=== PATIENT | female | born 1950 | race Caucasian/White ===

== ENCOUNTER 2017-01-02 06:50 | Day surgery (SDC) | payer MEDICARE, BC ==
[~2017-01-02 06:50] MED LIST: Midazolam 1 MG/ML 2 ML SDV ONE; fentaNYL 100 MCG/2 ML SDV ONE
[2017-01-02] MEDS ORDERED: Dextrose 5%-0.45% NaCl 1,000 ML IV SCH (07:00)
[2017-01-02] MEDS ORDERED: Sodium Chloride 0.9% 10 ML Syringe FLUSH PRN (07:00)
[2017-01-02] MEDS ORDERED: fentaNYL 100 MCG/2 ML SDV IV ONE ×2 (07:46→07:47)
[2017-01-02] MEDS ORDERED: Midazolam 1 MG/ML 2 ML SDV IV ONE ×3 (07:47→07:48)
--- NOTE | 2017-01-02 08:33 | OR ---
DATE: 01/02/2017 PROCEDURE: Esophagogastroduodenoscopy and multiple pinch biopsies. INSTRUMENT USED: GIF-H180 Olympus video panendoscope. PREMEDICATIONS: No oral topical anesthesia used. Fentanyl 100 mcg intravenous, Versed 2 mg intravenous. 2 L O2 nasal cannula. The procedure was done under pulse oximetry, BP recording, and media monitor. INDICATION: The patient with unexplained iron-deficiency anemia, on long-term aspirin. Esophagogastroduodenoscopy is performed for detection of any active erosive lesions, malignancy also under consideration, H. pylori status to be determined, small bowel biopsies to be obtained for celiac disease if indicated, endoscopic hemostasis therapy if needed. DESCRIPTION OF PROCEDURE: The scope was passed with ease. Adequate visualization of the esophagus was made from proximal to distal areas. No upper esophageal lesions identified. No distal esophageal stricture. No uphill or downhill esophageal varices. No Pallavi Thorne tear. No esophageal polyp or tumor mass identified. Z-line was seen at around 39 cm distal to the oral verge, configuration consistent with grade 1 by ZAP classification. No proximal gastric varices noted. Gastric fundus examination showed erosions without bleeding from it. No gastric ulcer, malignant mass, or vascular ectasia identified. Gastric antral erosion was noted in the pre-pyloric area. Duodenal bulb showed no ulcer. Visualized second part of the duodenum was unremarkable. Multiple pinch biopsies, 4 in number, were taken from different areas of the second part of the duodenum, biopsies were also taken from the duodenal bulb at 9 and 12 o'clock positions and sent for any histopathologic evidence of celiac disease. Multiple pinch biopsies were also taken from the gastric antrum and proximal body and sent for PyloriTek test for H. pylori and histopathology. No bleeding was noted from any of the visualized areas at the completion of examination. Photographs were taken of the duodenal bulb, gastric antrum, fundus, and distal esophagus. IMPRESSION: Gastric erosions. The patient tolerated the procedure well. [facility] /[id number]
[2017-02-13 13:45] VITALS: BP 158/56
== END 2017-01-02 10:05 | disposition home or self-care (01) ==
LOC: DL.ENDO 06:50
PROVIDERS: ATTEND Internal Medicine Gastroenterology
DX: K29.50 Unspecified chronic gastritis without bleeding (principal); I10 Essential (primary) hypertension; E66.9 Obesity, unspecified; M85.80 Other specified disorders of bone density and structure, unspecified site; E78.5 Hyperlipidemia, unspecified; D50.9 Iron deficiency anemia, unspecified; Z90.49 Acquired absence of other specified parts of digestive tract; Z98.890 Other specified postprocedural states; Z88.5 Allergy status to narcotic agent; Z88.0 Allergy status to penicillin; Z79.52 Long term (current) use of systemic steroids; Z79.899 Other long term (current) drug therapy
CPT/HCPCS: 43239; 87077; J2250; J3010; J7042; 88305

== ENCOUNTER 2017-01-03 05:47 | Day surgery (SDC) | payer MEDICARE, BC ==
[2017-01-03] MEDS ORDERED: Dextrose 5%-0.45% NaCl 1,000 ML IV SCH (06:15)
[2017-01-03] MEDS ORDERED: fentaNYL 100 MCG/2 ML SDV ONE (06:16)
[2017-01-03] MEDS ORDERED: Midazolam 1 MG/ML 2 ML SDV ONE (06:16)
[2017-01-03] MEDS ORDERED: fentaNYL 100 MCG/2 ML SDV IV ONE ×3 (06:30→16:41)
[2017-01-03] MEDS ORDERED: Midazolam 1 MG/ML 2 ML SDV IV ONE ×7 (06:32→16:41)
--- NOTE | 2017-01-03 07:56 | OR ---
DATE: 01/03/2017 PROCEDURE: Total colonoscopy. INSTRUMENT USED: CF-H180AL Olympus video colonoscope. PREMEDICATIONS: Fentanyl 100 mcg intravenous, Versed 4 mg intravenous. Nasal 2 L O2 cannula. The procedure was done under pulse oximetry, BP recording, and school lunch monitor. INDICATION: The patient with iron-deficiency anemia. Colonoscopic examination is done for detection of any polypoid lesions and removal, endoscopic hemostasis therapy if needed. DESCRIPTION OF PROCEDURE: Initial rectal exam showed external hemorrhoidal tags. Rigid anoscopy was unremarkable. The colonoscope was passed with ease. Numerous scattered diverticula were noted in the distal left colon along with significant deformity. The scope was passed with ease up to the ileocecal area, photographs were taken of the normal-appearing cecum, identified by landmarks of appendiceal orifice and double-bulged ileocecal folds. No bleeding was noted from any of the visualized areas at the commencement of the examination. No stricture. No vascular ectasia. No large isolated ulcerations seen. No evidence of diffuse inflammatory bowel disease in the form of friability, contact bleeding, or ulcerations. No polyp or tumor mass identified. Probing the proximal sides of folds and flexures, using adequate distention and clearing up the stool material, withdrawal of the scope was made, cecum to rectum time over 6 minutes. No bleeding was noted from any of the visualized areas at the completion of examination. IMPRESSION: 1. External hemorrhoids. 2. Diverticulosis. The patient tolerated the procedure well. [facility] /[id number]
[2017-02-13 13:46] VITALS: BP 149/73
== END 2017-01-03 09:05 | disposition home or self-care (01) ==
LOC: DL.ENDO 05:47
PROVIDERS: ATTEND Internal Medicine Gastroenterology
DX: K57.30 Diverticulosis of large intestine without perforation or abscess without bleeding (principal); K64.4 Residual hemorrhoidal skin tags; I10 Essential (primary) hypertension; E66.9 Obesity, unspecified; Z90.49 Acquired absence of other specified parts of digestive tract; Z88.0 Allergy status to penicillin; Z98.890 Other specified postprocedural states; Z79.899 Other long term (current) drug therapy; Z79.82 Long term (current) use of aspirin; E78.5 Hyperlipidemia, unspecified
CPT/HCPCS: 45378; J2250; J3010; J7042

== ENCOUNTER 2018-06-10 06:24 | Day surgery (SDC) | payer MEDICARE, BC ==
[2018-06-10] MEDS ORDERED: Sodium Chloride 0.9% 10 ML Syringe IV ONE (06:25)
[2018-06-10] MEDS ORDERED: Dexamethasone 4 MG/ML SDV IV ONE (06:25)
[2018-06-10] MEDS ORDERED: Midazolam 1 MG/ML 2 ML SDV IV ONE (06:25)
[2018-06-10] MEDS ORDERED: Ondansetron 4 MG/2 ML SDV IVPUSH PRN (06:30)
[2018-06-10] MEDS ORDERED: Phenylephrine 10% Ophth Soln 5 ML Bot EYELF ONE (06:30)
[2018-06-10] MEDS ORDERED: Proparacaine 0.5% Ophth Soln 15 ML Bottle EYELF ONE (06:30)
[2018-06-10] MEDS ORDERED: Acetaminophen 325 MG Tab PO PRN (06:30)
[2018-06-10] MEDS ORDERED: Sodium Chloride 0.9% 10 ML Syringe FLUSH PRN (06:30)
[2018-06-10] MEDS ORDERED: Moxifloxacin 0.5% Ophth Soln 3 ML Bottle EYELF ONE (06:30)
[2018-06-10] MEDS ORDERED: Povidone-Iodine 5% Sterile Ophth Soln 30 ML Bottle EYELF ONE ×2 (06:30→07:48)
[2018-06-10] MEDS ORDERED: Phenylephrine 10% Ophth Soln 5 ML Bot EYELF PRN (06:30)
[2018-06-10] MEDS ORDERED: Cataract Ophth Solution EYELF ONE (06:30)
[2018-06-10] MEDS ORDERED: Timolol Maleate 0.5% Ophth Soln 5 ML Bottle EYELF ONE (06:30)
[2018-06-10] MEDS ORDERED: Tetracaine HCl/PF 0.5% 4 ML Bottle EYELF ONE (07:48)
[2018-06-10] MEDS ORDERED: Lidocaine 1% 30 ML SDV INJECT ONE (07:53)
[2018-06-10] MEDS ORDERED: Balanced Salt Solution Plus Ophth Irrig 500 ML Bottle IOCULAR ONE (07:54)
[2018-06-10] MEDS ORDERED: Chondroitin Sulfate/Hyaluronate Sodium Ophth Inj 0.75 ML Syringe EYELF ONE (07:54)
[2018-06-10] MEDS ORDERED: Vancomycin 500 MG SDV EYELF ONE (07:55)
[2018-06-10] MEDS ORDERED: Dexamethasone/Neomycin/Polymyxin B Ophth Oint 3.5 GM Tube EYELF ONE (08:06)
[2018-06-10] MEDS ORDERED: Apraclonidine 0.5% Ophth Soln 5 ML Bot EYELF ONE (08:06)
[2018-06-10 10:53] VITALS: BP 124/68
--- NOTE | 2018-06-10 14:11 | OR ---
DATE: 06/10/2018 PREOPERATIVE DIAGNOSIS: Visually significant mixed cataract, left eye. POSTOPERATIVE DIAGNOSIS: Visually significant mixed cataract, left eye. PROCEDURE: Extracapsular cataract extraction with intraocular lens implant, left eye. ANESTHESIA: Topical/local MAC. COMPLICATIONS: None. INDICATION: The patient was seen in the clinic with complaints of blurred vision, difficulty driving at night, difficulty with bright lights and glare. Clinical examination reveals mixed cataract. I explained options, offered cataract surgery, and I explained risks preoperatively including the potential for visual loss. She is symptomatic and requested surgery to improve vision and function. She requested a monofocal implant. OPERATIVE DESCRIPTION: After informed consent was obtained and the risks, benefits, and alternatives were explained, the patient was brought to the operative suite and topical anesthesia was administered. The patient was then prepped and draped in the sterile fashion and attention was placed on the left eye. A sterile lid speculum was placed into the left eye to allow operative exposure. A full-thickness paracentesis was made in the temporal portion of the operative eye. Preservative-free lidocaine 0.1 mL was injected into the anterior chamber followed by viscoelastic. A full-thickness corneal incision was then made into the anterior chamber. A bent needle cystotome was used to create a small kamala in the anterior capsule. The capsulorrhexis forceps was then used to create a 360-degree curvilinear capsulorrhexis. The nucleus was then removed using a phacoemulsification handpiece and the remaining cortical material was then removed with irrigation and aspiration handpiece. Following removal of the cortical material, the capsular bag was then inspected and noted to be free of any holes or tears. Viscoelastic was then injected into the capsular bag and the intraocular lens was inserted into the capsular bag. The viscoelastic material was then removed from both the anterior and posterior chambers and from behind the IOL. The lens and capsular bag were then reinspected. The IOL was well centered and the capsular bag intact. The wound and paracentesis sites were inspected and hydrated with balanced saline solution. Both were found to be self- sealing. The intraocular pressure was assessed digitally and found to be within normal range. A good red reflex was noted at the completion of the procedure. No complications occurred during the operation. At the completion of the procedure, Maxitrol, Voltaren, and Iopidine drops were placed into the operative eye. A sterile eye shield was placed over the operative eye and the patient was transported to the postoperative recovery area having tolerated the procedure well. Postoperative instructions were given along with a postoperative appointment. The patient was advised to call with any questions or concerns. [facility] /[id number]
== END 2018-06-10 09:08 | disposition home or self-care (01) ==
LOC: DL.SDS 06:24
PROVIDERS: ATTEND Ophthalmology
DX: H25.812 Combined forms of age-related cataract, left eye (principal); I10 Essential (primary) hypertension; J45.909 Unspecified asthma, uncomplicated; E66.9 Obesity, unspecified; Z68.25 Body mass index [BMI] 25.0-25.9, adult; E78.5 Hyperlipidemia, unspecified; K21.9 Gastro-esophageal reflux disease without esophagitis; Z87.891 Personal history of nicotine dependence; Z79.82 Long term (current) use of aspirin; Z79.899 Other long term (current) drug therapy; Z88.0 Allergy status to penicillin; Z88.1 Allergy status to other antibiotic agents; Z88.5 Allergy status to narcotic agent
CPT/HCPCS: 00142; 66984; A9270; C1780; J1100; J2250; J3370; J7050

== ENCOUNTER 2018-06-17 06:28 | Day surgery (SDC) | payer MEDICARE, BC ==
[~2018-06-17 06:28] MED LIST changes: -Midazolam 1 MG/ML 2 ML SDV ONE; +Proparacaine 0.5% Ophth Soln 15 ML Bottle ONE; -fentaNYL 100 MCG/2 ML SDV ONE
[2018-06-17] MEDS ORDERED: Midazolam 1 MG/ML 2 ML SDV IV ONE (06:29)
[2018-06-17] MEDS ORDERED: Sodium Chloride 0.9% 10 ML Syringe IV ONE (06:29)
[2018-06-17] MEDS ORDERED: Dexamethasone 4 MG/ML SDV IV ONE (06:29)
[2018-06-17] MEDS ORDERED: Sodium Chloride 0.9% 10 ML Syringe FLUSH PRN (06:30)
[2018-06-17] MEDS ORDERED: Cataract Ophth Solution EYERT ONE (06:30)
[2018-06-17] MEDS ORDERED: Acetaminophen 325 MG Tab PO PRN (06:30)
[2018-06-17] MEDS ORDERED: Phenylephrine 10% Ophth Soln 5 ML Bot EYERT PRN (06:30)
[2018-06-17] MEDS ORDERED: Povidone-Iodine 5% Sterile Ophth Soln 30 ML Bottle EYERT ONE ×2 (06:30→07:58)
[2018-06-17] MEDS ORDERED: Timolol Maleate 0.5% Ophth Soln 5 ML Bottle EYERT ONE (06:30)
[2018-06-17] MEDS ORDERED: Proparacaine 0.5% Ophth Soln 15 ML Bottle EYERT ONE (06:30)
[2018-06-17] MEDS ORDERED: Phenylephrine 10% Ophth Soln 5 ML Bot EYERT ONE (06:30)
[2018-06-17] MEDS ORDERED: Moxifloxacin 0.5% Ophth Soln 3 ML Bottle EYERT ONE (06:30)
[2018-06-17] MEDS ORDERED: Ondansetron 4 MG/2 ML SDV IVPUSH PRN (06:30)
[2018-06-17] MEDS ORDERED: Tetracaine HCl/PF 0.5% 4 ML Bottle EYERT ONE (07:57)
[2018-06-17] MEDS ORDERED: Lidocaine 1% 30 ML SDV ONE (07:59)
[2018-06-17] MEDS ORDERED: Vancomycin 500 MG SDV EYERT ONE (07:59)
[2018-06-17] MEDS ORDERED: Balanced Salt Solution Ophth Irrig 500 ML Bottle IOCULAR ONE (08:00)
[2018-06-17] MEDS ORDERED: Chondroitin Sulfate/Hyaluronate Sodium Ophth Inj 0.75 ML Syringe EYERT ONE (08:01)
[2018-06-17] MEDS ORDERED: Diclofenac Sodium 0.1% Ophth Soln 5 ML Bottle EYERT ONE (08:02)
[2018-06-17] MEDS ORDERED: Apraclonidine 0.5% Ophth Soln 5 ML Bot EYERT ONE (08:02)
[2018-06-17] MEDS ORDERED: Dexamethasone/Tobramycin 0.1-0.3% Ophth Oint 3.5 GM Tube EYERT ONE ×2 (08:06)
--- NOTE | 2018-06-17 08:37 | OR ---
DATE: 06/17/2018 PREOPERATIVE DIAGNOSIS: Visually significant mixed cataract, right eye. POSTOPERATIVE DIAGNOSIS: Visually significant mixed cataract, right eye. PROCEDURE: Extracapsular cataract extraction with intraocular lens implant, right eye. ANESTHESIA: Topical/local MAC. COMPLICATIONS: None. INDICATION: Mrs. Guzman was seen in the clinic. Clinical examination reveals visually significant mixed cataract. I explained options; I offered cataract surgery; and I explained risks including the potential for infection, retinal detachment, and loss of vision amongst others. We discussed implant options. She is symptomatic and requested surgery. She requested a monofocal implant. OPERATIVE DESCRIPTION: After informed consent was obtained and the risks, benefits, and alternatives were explained, the patient was brought to the operative suite and topical anesthesia was administered. The patient was then prepped and draped in the sterile fashion, and attention was placed on the right eye. A sterile lid speculum was placed into the right eye to allow operative exposure. A full-thickness paracentesis was made in the temporal portion of the operative eye. Preservative-free lidocaine 0.1 mL was injected into the anterior chamber followed by viscoelastic. A full-thickness corneal incision was then made into the anterior chamber. A bent needle cystotome was used to create a small kamala in the anterior capsule. The capsulorrhexis forceps was then used to create a 360-degree curvilinear capsulorrhexis. The nucleus was then removed using a phacoemulsification handpiece, and the remaining cortical material was then removed with irrigation and aspiration handpiece. Following removal of the cortical material, the capsular bag was then inspected and noted to be free of any holes or tears. Viscoelastic was then injected into the capsular bag, and the intraocular lens was inserted into the capsular bag. The viscoelastic material was then removed from both the anterior and posterior chambers and from behind the IOL. The lens and capsular bag were then reinspected. The IOL was well centered and the capsular bag intact. The wound and paracentesis sites were inspected and hydrated with balanced saline solution. Both were found to be self-sealing. The intraocular pressure was assessed digitally and found to be within normal range. A good red reflex was noted at the completion of the procedure. No complications occurred during the operation. At the completion of the procedure, Maxitrol, Voltaren, and Iopidine drops were placed into the operative eye. A sterile eye shield was placed over the operative eye, and the patient was transported to the postoperative recovery area having tolerated the procedure well. Postoperative instructions were given along with a postoperative appointment. The patient was advised to call with any questions or concerns. [facility] /[id number]
[2018-06-17 08:54] VITALS: BP 101/69
== END 2018-06-17 08:50 | disposition home or self-care (01) ==
LOC: DL.SDS 06:28
PROVIDERS: ATTEND Ophthalmology
DX: H25.811 Combined forms of age-related cataract, right eye (principal); I10 Essential (primary) hypertension; J45.909 Unspecified asthma, uncomplicated; E66.3 Overweight; Z68.25 Body mass index [BMI] 25.0-25.9, adult; E78.5 Hyperlipidemia, unspecified; K21.9 Gastro-esophageal reflux disease without esophagitis; Z87.891 Personal history of nicotine dependence; Z79.82 Long term (current) use of aspirin; Z79.899 Other long term (current) drug therapy; Z88.1 Allergy status to other antibiotic agents; Z88.0 Allergy status to penicillin; Z88.5 Allergy status to narcotic agent
CPT/HCPCS: 00142; 66984; A9270; C1780; J1100; J2250; J3370; J7050